=== PATIENT | male | born 1985 | race Caucasian/White ===

== ENCOUNTER 2021-02-07 07:30 | Emergency (ER) | payer MEDICAID ==
[2021-02-07 08:04] LABS: HEMOGLOBIN 16.3 gm/dl (14.0-17.5); RED BLOOD COUNT 5.63 M/UL (4.20-5.50); WHITE BLOOD COUNT 19.4 K/UL (4.5-11.0)
[2021-02-07 08:39] LABS: BUN/CREATININE RATIO 15 (0-10)
== END 2021-02-07 09:15 | disposition short-term general hospital (02) ==
LOC: ER1 07:30
PROVIDERS: Student in an Organized Health Care Education/Training Program
DX: S32.019A Unspecified fracture of first lumbar vertebra, initial encounter for closed fracture (principal); S22.089A Unspecified fracture of T11-T12 vertebra, initial encounter for closed fracture; S32.029A Unspecified fracture of second lumbar vertebra, initial encounter for closed fracture; W01.0XXA Fall on same level from slipping, tripping and stumbling without subsequent striking against object, initial encounter; Y92.009 Unspecified place in unspecified non-institutional (private) residence as the place of occurrence of the external cause; F17.200 Nicotine dependence, unspecified, uncomplicated; Z20.822 Contact with and (suspected) exposure to COVID-19
CPT/HCPCS: 70450; 71045; 71260; 72125; 72128; 72131; 72170; 80053; 83605; 85025; 85610; 85730; 86850; 86900; 86901; 93005; 99285; G0480; J1170; J2405; J3010; U0002